=== PATIENT | female | born 1955 | race Caucasian/White ===

== ENCOUNTER 2021-03-20 10:24 | Outpatient (CLI) | payer MEDICARE, OTHER ==
[2021-03-20 15:22] LABS: BASOPHILS % (AUTO) 0.6 %; EOSINOPHILS # (AUTO) 0.1 10^3/uL (0.0-0.7); HCT - HEMATOCRIT 40.1 % (37.0-47.0); HGB - HEMOGLOBIN 13.4 g/dL (12.0-16.0); LYMPHOCYTES # (AUTO) 1.7 10^3/uL (1.5-3.5); LYMPHOCYTES % (AUTO) 34.9 %; MEAN CORPUSCULAR HEMOGLOBIN 32.6 pg (27.0-31.0); MEAN CORPUSCULAR HGB CONC 33.4 g/dL (32.0-36.0); MEAN CORPUSCULAR VOLUME 97.6 fL (81.0-99.0); MEAN PLATELET VOLUME 10.5 fL (7.9-10.8); MONOCYTES # (AUTO) 0.3 10^3/uL (0.0-1.0); MONOCYTES % (AUTO) 6.2 %; NEUTROPHILS # (AUTO) 2.7 10^3/uL (1.5-6.6); NEUTROPHILS % (AUTO) 57.1 %; PLT - PLATELET COUNT 261 10^3/uL (130-450); RED BLOOD COUNT 4.11 10^6/uL (4.20-5.40); RED CELL DISTRIBUTION WIDTH 13.5 % (12.0-15.0); WHITE BLOOD COUNT 4.8 x10^3/uL (4.8-10.8)
[2021-03-20 16:08] LABS: ALBUMIN 4.5 g/dL (3.2-5.5); ALBUMIN/GLOBULIN RATIO 1.9 (1.0-2.2); ALKALINE PHOSPHATASE 47 IU/L (42-121); ALT ALANINE AMINOTRANSFERASE 15 IU/L (10-60); AMYLASE 89 U/L (28-100); AST ASPARTATE AMINOTRANSFERASE 25 IU/L (10-42); BILIRUBIN,TOTAL 0.7 mg/dL (0.2-1.0); BUN - BLOOD UREA NITROGEN 10 mg/dL (6-20); CALCIUM 9.7 mg/dL (8.5-10.3); CARBON DIOXIDE - CO2 26 mmol/L (21-32); CHLORIDE 104 mmol/L (101-111); CHOL/HDL RATIO 2.7 (<4.4); CHOLESTEROL 251 mg/dL; CREATININE 0.6 mg/dL (0.4-1.0); GFR - MDRD 100 (>89); GLUCOSE 107 mg/dL (70-100); HDL CHOLESTEROL 93 mg/dL; LDL CHOLESTEROL,CALCULATED 149 mg/dL; LDL/HDL RATIO 1.6 (<4.4); LIPASE 42 U/L (22-51); POTASSIUM 3.6 mmol/L (3.5-5.0); SODIUM 141 mmol/L (135-145); TOTAL PROTEIN 6.9 g/dL (6.7-8.2); TRIGLYCERIDES 47 mg/dL; VLDL CHOLESTEROL 9 mg/dL
== END 2021-03-20 10:25 | disposition home or self-care (01) ==
LOC: LAB.S 10:24
DX: R53.1 Weakness (principal); Z13.228 Encounter for screening for other metabolic disorders
CPT/HCPCS: 36415; 80053; 80061; 81003; 82150; 82306; 83690; 83721; 84443; 85025; 85651

== ENCOUNTER 2021-05-02 10:14 | Outpatient (CLI) | payer MEDICARE, OTHER ==
[2021-05-02 15:44] LABS: THYROID STIMULATING HORMONE 0.08 uIU/mL (0.34-5.60)
[2021-05-02 15:46] LABS: FREE T4 (FREE THYROXINE) 1.93 ng/dL (0.58-1.64)
== END 2021-05-02 10:15 | disposition home or self-care (01) ==
LOC: LAB.S 10:14
PROVIDERS: ATTEND Naturopath
DX: R53.1 Weakness (principal); Z13.228 Encounter for screening for other metabolic disorders
CPT/HCPCS: 36415; 84439; 84443

== ENCOUNTER 2021-05-10 10:01 | Outpatient (CLI) | payer MEDICARE, OTHER ==
[2021-05-10 15:45] LABS: THYROID STIMULATING HORMONE 0.08 uIU/mL (0.34-5.60)
[2021-05-10 15:47] LABS: FREE T4 (FREE THYROXINE) 1.61 ng/dL (0.58-1.64)
== END 2021-05-10 10:02 | disposition home or self-care (01) ==
LOC: LAB.S 10:01
PROVIDERS: ATTEND Naturopath
DX: R53.1 Weakness (principal); Z13.228 Encounter for screening for other metabolic disorders
CPT/HCPCS: 36415; 84439; 84443

== ENCOUNTER 2021-06-01 10:01 | Outpatient (CLI) | payer MEDICARE, OTHER ==
[2021-06-01 15:30] LABS: THYROID STIMULATING HORMONE 7.25 uIU/mL (0.34-5.60)
[2021-06-01 15:32] LABS: FREE T4 (FREE THYROXINE) 0.87 ng/dL (0.58-1.64)
== END 2021-06-01 10:02 | disposition home or self-care (01) ==
LOC: LAB.S 10:01
PROVIDERS: ATTEND Naturopath
DX: R53.1 Weakness (principal); Z13.228 Encounter for screening for other metabolic disorders
CPT/HCPCS: 36415; 84439; 84443

== ENCOUNTER 2021-06-22 11:26 | Outpatient (CLI) | payer MEDICARE, OTHER | END 2021-06-22 11:27 | disposition E | LOC: EMS 11:26 ==